=== PATIENT | female | born 1995 | race African-American/Black ===

== ENCOUNTER 2018-08-19 17:23 | Emergency (ER) | payer OTHER ==
[2018-08-19 17:49] LABS: ADD MAN DIFF? NO
[2018-08-19 17:54] LABS: BASOPHILS % 0.4 % (0.0-2.0); HEMATOCRIT 36.4 % (37.0-47.0); HEMOGLOBIN 12.2 g/dl (12.0-16.0); MEAN CORPUSCULAR HEMOGLOBIN 31.4 pg (29.0-33.0); MEAN CORPUSCULAR HGB CONC 33.5 g/dl (32.0-37.0); MEAN CORPUSCULAR VOLUME 93.6 fl (82.0-101.0); MEAN PLATELET VOLUME 9.6 fl (7.4-10.4); MONOCYTE # 0.5 10^3/ul (0.3-0.9); MONOCYTES % 7.7 % (0.0-11.0); NEUTROPHIL # 5.4 10^3/ul (1.6-7.5); NEUTROPHILS % 77.5 % (39.0-77.0); PLATELET COUNT 168 10^3/UL (140-415); RED BLOOD COUNT 3.89 10^6/ul (4.20-5.40); RED CELL DISTRIBUTION WIDTH 12.8 % (11.5-14.5)
[2018-08-19 18:13] LABS: INR 0.96; PROTIME 12.9 Sec (11.9-14.9)
[2018-08-19 18:27] LABS: ALANINE AMINOTRANSFERASE 12 IU/L (13-69); ALBUMIN 4.2 g/dl (3.3-4.9); ALBUMIN/GLOBULIN RATIO 1.16; ALKALINE PHOSPHATASE 65 IU/L (42-121); ANION GAP 14 (5-13); ASPARTATE AMINO TRANSFERASE 24 IU/L (15-46); BILIRUBIN,INDIRECT 0.1 mg/dl (0-1.1); BILIRUBIN,TOTAL 0.1 mg/dl (0.2-1.3); BLOOD UREA NITROGEN 10 mg/dl (7-20); CALCIUM 9.1 mg/dl (8.4-10.2); CARBON DIOXIDE 23 mmol/L (21-31); CHLORIDE 100 mmol/L (97-110); CREATINE KINASE 123 IU/L (23-200); CREATININE 1.08 mg/dl (0.44-1.00); Estimated GFR > 60 mL/min (>60); GLUCOSE 117 mg/dl (70-220); POTASSIUM 3.4 mmol/L (3.5-5.1); SODIUM 137 mmol/L (135-144); TOTAL PROTEIN 7.8 g/dl (6.1-8.1)
[2018-08-19 18:42] LABS: ETHANOL < 10.0 mg/dl (0-0)
== END 2018-08-19 20:33 | disposition home or self-care (01) ==
LOC: E/R 17:23
DX: S70.12XA Contusion of left thigh, initial encounter (principal); R41.82 Altered mental status, unspecified; W18.2XXA Fall in (into) shower or empty bathtub, initial encounter; Y92.9 Unspecified place or not applicable; Z86.59 Personal history of other mental and behavioral disorders
CPT/HCPCS: 70450; 73700; 80053; 80307; 82550; 84703; 85025; 85610; 85730; 99285-25